=== PATIENT | male | born 1975 | race Caucasian/White ===

== ENCOUNTER 2023-03-08 11:00 | Outpatient (REF) | payer SELFPAY ==
--- NOTE | 2023-03-08 13:50 | MHC.AU.HFU ---
Hearing Instrument Follow-Up- Binaural Date of Visit: 03/08/23 Follow-Up Summary: Fermín is here today for custom swim molds. He is followed by Dr. Maguire (ENT) as he gets frequent otitis externa/media. Currently he has no concern for ear infections. He would like swim molds to help prevent ear infections. He likes to swim and plans to use them swimming. Impressions were taken bilaterally without incident. The patient will be contacted to schedule a fitting once they arrive. Quoted $130 due at the fitting. Diagnosis Code(s): Primary Diagnosis: H69.90 Unspecified Eustachian Tube Dysfunction, Unspecified Ear Signature: Provider: Alberto Choudhary, CCC-A
== END 2023-03-08 11:01 | disposition home or self-care (01) ==
LOC: HO.HAP 11:00
PROVIDERS: Visit Provider Internal Medicine
DX: Z13.89 Encounter for screening for other disorder (principal)

== ENCOUNTER 2023-04-21 12:55 | Outpatient (REF) | payer SELFPAY ==
--- NOTE | 2023-04-21 13:34 | MHC.AU.HFU ---
Hearing Instrument Follow-Up- Binaural Date of Visit: 04/21/23 Follow-Up Summary: The patient was seen today for a swim mold fitting. Otoscopy reveals clear ear canals bilaterally. [employer] Aquanot swim plugs fit well bilaterally. The patient was able to insert and remove them with ease. Reviewed cleaning. Reviewed 30 day remake period. The patient paid $130 today. Additional follow-up as needed. Diagnosis Code(s): Primary Diagnosis: H69.90 Unspecified Eustachian Tube Dysfunction, Unspecified Ear Signature: Provider: Alberto Choudhary, CCC-A
== END 2023-04-21 12:56 | disposition home or self-care (01) ==
LOC: HO.HAP 12:55
PROVIDERS: Visit Provider Internal Medicine
DX: Z46.1 Encounter for fitting and adjustment of hearing aid (principal); H69.90 Unspecified Eustachian tube disorder, unspecified ear
CPT/HCPCS: V5264